=== PATIENT | female | born 1975 | race Caucasian/White ===

== ENCOUNTER 2022-11-02 06:00 | Outpatient (RCR) | payer OTHER, SELFPAY | END 2022-11-25 23:59 | disposition home or self-care (01) | LOC: WPT 06:00 | PROVIDERS: Visit Provider Physician Assistant Surgical | DX: M75.42 Impingement syndrome of left shoulder (principal) | CPT/HCPCS: 97110; 97112; 97140; 97161; 97530 ==

== ENCOUNTER → 2022-11-17 13:43 | Outpatient (BNVA) | payer OTHER, SELFPAY | PROVIDERS: PCP Nurse Practitioner Family; Referring Provider Nurse Practitioner Family; Visit Provider Internal Medicine | DX: E11.9 Type 2 diabetes mellitus without complications (principal); I25.119 Atherosclerotic heart disease of native coronary artery with unspecified angina pectoris; Z79.4 Long term (current) use of insulin; Z79.84 Long term (current) use of oral hypoglycemic drugs | CPT/HCPCS: 99204 ==

== ENCOUNTER → 2023-02-22 07:52 | Outpatient (BNVA) | payer OTHER, SELFPAY | PROVIDERS: PCP Nurse Practitioner Family; Visit Provider Internal Medicine | DX: E11.9 Type 2 diabetes mellitus without complications (principal); E78.00 Pure hypercholesterolemia, unspecified; K76.0 Fatty (change of) liver, not elsewhere classified; Z79.4 Long term (current) use of insulin; Z79.84 Long term (current) use of oral hypoglycemic drugs | CPT/HCPCS: 99214 ==

== ENCOUNTER 2023-04-04 10:54 | Outpatient (CLI) | payer OTHER, SELFPAY ==
--- NOTE | 2023-04-04 11:11 | MM_ITS ---
WS: [id number] BILATERAL 3D TOMOSYNTHESIS DIGITAL SCREENING MAMMOGRAPHY WITH CAD CLINICAL INFORMATION: SCREENING HISTORY: Screening mammogram. No current complaints. COMPARISON: 2020 TECHNIQUE: Bilateral CC and MLO views. FINDINGS: The breasts are composed of heterogeneous fibroglandular density tissue, which can limit the detectio n of small underlying mass lesions. No suspicious mass, asymmetry, calcifications, or architectural d istortion. No evidence of malignancy. A few incidental punctate calcifications. IMPRESSION: MM/[place] [id number] BI-RADS: 2-Benign FOLLOW UP: 1 Year Follow-up Recommend return to annual screening mammography.
== END 2023-04-04 10:55 | disposition home or self-care (01) ==
LOC: RAD 10:54
PROVIDERS: PCP Nurse Practitioner Family; Visit Provider Nurse Practitioner Family
DX: Z12.31 Encounter for screening mammogram for malignant neoplasm of breast (principal)
CPT/HCPCS: 77063; 77067

== ENCOUNTER → 2023-06-30 09:30 | Outpatient (BNVA) | payer OTHER, SELFPAY | PROVIDERS: PCP Nurse Practitioner Family; Visit Provider Internal Medicine | DX: E78.00 Pure hypercholesterolemia, unspecified (principal); E11.9 Type 2 diabetes mellitus without complications; Z79.84 Long term (current) use of oral hypoglycemic drugs; Z79.4 Long term (current) use of insulin | CPT/HCPCS: 99214 ==

== ENCOUNTER → 2023-10-24 09:42 | Outpatient (BNVA) | payer OTHER, SELFPAY | PROVIDERS: PCP Nurse Practitioner Family; Visit Provider Internal Medicine | DX: E78.00 Pure hypercholesterolemia, unspecified (principal); E11.9 Type 2 diabetes mellitus without complications; Z79.4 Long term (current) use of insulin; Z79.85 Long-term (current) use of injectable non-insulin antidiabetic drugs; Z79.84 Long term (current) use of oral hypoglycemic drugs | CPT/HCPCS: 99214 ==

== ENCOUNTER → 2023-11-29 10:41 | Outpatient (BNVA) | payer OTHER, SELFPAY | PROVIDERS: PCP Nurse Practitioner Family; Referring Provider Physician Assistant Surgical; Visit Provider Physician Assistant | DX: M79.641 Pain in right hand (principal); M65.312 Trigger thumb, left thumb | CPT/HCPCS: 73130; 99204 ==

== ENCOUNTER → 2024-01-24 10:39 | Outpatient (BNVA) | payer OTHER, SELFPAY | PROVIDERS: PCP Nurse Practitioner Family; Visit Provider Internal Medicine | DX: E11.9 Type 2 diabetes mellitus without complications (principal); E78.00 Pure hypercholesterolemia, unspecified; Z79.4 Long term (current) use of insulin; Z79.85 Long-term (current) use of injectable non-insulin antidiabetic drugs | CPT/HCPCS: 99214 ==

== ENCOUNTER 2024-02-05 21:39 | Emergency (ER) | payer OTHER, SELFPAY ==
[2024-02-05] VITALS (7 sets, daily range): BP systolic 98–135; BP diastolic 50–99; PULSE 80–92; RESP 12–18; TEMP 36.7; O2SAT 94–98; BMI 28.0
--- NOTE | 2024-02-05 21:39 | ECG_ITS ---
[facility] Test Date: 2024-02-05 Pat Name: Rosana Martinez Department: Room: Gender: Female Jig Borer: : 1975 Requested By: Laila Bush Order Number: [id number] Gonzalez MD: Mickey Burch M.D. Measurements Intervals [place] Rate: 89 P: 65 ND: 150 QRS: 91 QRSD: 125 T: 38 QT: 369 QTc: 451 Interpretive Statements SINUS RHYTHM RIGHT BUNDLE BRANCH BLOCK [120+ ms QRS DURATION, UPRIGHT V1, 40+ ms S IN I/aVL/V4/V5/V6] No previous ECG available for comparison Electronically Signed On 02-06-2024 7:48:32 CDT by Mickey Burch M.D. [id number]
--- NOTE | 2024-02-05 21:41 | XRR_ITS ---
PROCEDURE INFORMATION: Exam: XR Chest Exam date and time: 02/05/2024 9:58 PM Age: 48 years old Clinical indication: Pain; Chest pressure; Prior surgery; Surgery date: 6+ months; Surgery type: States she has a stent; Additional info: Chest pain TECHNIQUE: Imaging protocol: Radiologic exam of the chest. Views: 1 view. COMPARISON: No relevant prior studies available. FINDINGS: Lungs: Unremarkable. No consolidation. Pleural spaces: Unremarkable. No pleural effusion. No pneumothorax. Heart/Mediastinum: Unremarkable. No cardiomegaly. Bones/joints: Moderate degenerative disease of bilateral acromioclavicular joints. XR/XR chest 1V portable [id number] IMPRESSION: No acute cardiopulmonary process.
[2024-02-05 21:50] LABS: Basophils # 0.1 10^3/uL (0.0-0.1); Basophils % 0.5 %; Eosinophils # 0.9 10^3/uL (0.0-0.8); Eosinophils % 5.1 %; Hematocrit 42.2 % (36-47); Lymphocytes # 1.8 10^3/uL (0.8-4.8); Lymphocytes % 10.8 %; Mean Corpuscular HGB Conc 33.2 g/dL (30-55); Mean Corpuscular Hemoglobin 30.8 pg (27-33); Mean Corpuscular Volume 92.7 fl (85-98); Monocytes # 0.8 10^3/uL (0.2-0.9); Monocytes % 4.6 %; Neutrophils # 13.15 10^3/uL (1.8-7.7); Neutrophils % 78.7 %; Nucleated Red Blood Cells % 0 %; Platelet Count 159 10^3/cmm (157-399); Red Blood Count 4.55 10^6/uL (3.85-5.65); Red Cell Distribution Width 13.7 % (12.1-15.1); White Blood Count 16.72 10^3/uL (3.29-11.43)
--- NOTE | 2024-02-05 21:59 | ED_ITS ---
HPI - Chest Pain 2 General: Chief Complaint: Chest Pain Stated Complaint: Chest Pain Time Seen by Provider: 02/05/24 21:40 History of Present Illness: 48-year-old female with history of diabe surjit, tobacco dependence, hypertension, hyperlipidemia and coronary artery disease status post stent about 5 years ago who presents emergency room with chest pain that started yesterday. She said she is having a central chest pain that goes up into her neck and into her jaw on both sides. This is not the same as when she had a heart attack previously. She said she took a nitro last night when it started and that helped some. It was still there today. Has persisted all day and gotten worse as the days gone long. She took another nitro on the way here and that relieved the pain slightly. No cough. No shortness of breath. No altered mental status. No nausea or vomiting. No abdominal pain. No lower extremity swelling. Related Data Home Medications Medication Instructions Recorded Confirmed albuterol sulfate 90 mcg/actuation 2 inh inhalation QID 11/17/22 01/24/24 breath activated powder inhaler aspirin 81 mg tablet,delayed 81 mg PO DAILY 11/17/22 01/24/24 release (Adult Aspirin Regimen) blood sugar diagnostic (Accu-Chek 11/17/22 01/24/24 Guide test strips) buspirone 10 mg tablet 10 mg PO TID 11/17/22 01/24/24 losartan 25 mg tablet 25 mg PO DAILY 11/17/22 01/24/24 meclizine 25 mg chewable tablet 12.5 mg PO TID PRN 11/17/22 01/24/24 metoprolol succinate 25 mg 25 mg PO DAILY 11/17/22 01/24/24 tablet,extended release 24 hr rosuvastatin 40 mg tablet 40 mg PO DAILY 11/17/22 01/24/24 baclofen 20 mg tablet 20 mg PO TID 11/29/23 01/24/24 cholecalciferol (vitamin D3) 50 50 mcg PO DAILY 11/29/23 01/24/24 mcg (2,000 unit) capsule fexofenadine 180 mg tablet 180 mg PO DAILY 11/29/23 01/24/24 pregabalin 100 mg capsule 100 mg PO TID 11/29/23 01/24/24 venlafaxine 150 mg 150 mg PO DAILY 11/29/23 01/24/24 capsule,extended release 24 hr tramadol 100 mg tablet 100 mg PO TID PRN 01/24/24 01/24/24 Previous Rx's Medication Instructions Recorded blood-glucose meter,continuous #1 ea 06/30/23 (Dexcom G7 Journeyman Wireman) insulin aspart U-100 100 unit/mL 30 unit (0.3 mL) SUBCUT TID #15 mL 06/30/23 (3 mL) subcutaneous pen (Novolog FlexPen U-100 Insulin aspart) semaglutide 2 mg/dose (8 mg/3 mL) 2 mg (0.75 mL) SUBCUT Q7D #3 mL 10/24/23 subcutaneous pen injector (Ozempic) blood-glucose sensor (Dexcom G7 #9 ea 01/24/24 Sensor device) Allergies Allergy/AdvReac Type Severity Reaction Status Date / Time fluticasone Allergy Unknown Verified 02/05/24 21:57 ketorolac [From Toradol] Allergy Unknown Verified 02/05/24 21:57 latex Allergy Unknown Verified 02/05/24 21:57 prazosin Allergy Unknown Verified 02/05/24 21:57 salmeterol Allergy Unknown Verified 02/05/24 21:57 [From Wixela Inhub] saxagliptin Allergy Unknown Verified 02/05/24 21:57 Review of Systems 2 Narrative: Constitutional symptoms: Negative except as documented in HPI. Skin symptoms: Negative except as documented in HPI. Eye symptoms: Negative except as documented in HPI. ENMT symptoms: Negative except as documented in HPI. Respiratory symptoms: Negative except as documented in HPI. Cardiovascular symptoms: Negative except as documented in HPI. Gastrointestinal symptoms: Negative except as documented in HPI. Genitourinary symptoms: Negative except as documented in HPI. Musculoskeletal symptoms: Negative except as documented in HPI. Neurologic symptoms: Negative except as documented in HPI. Psychiatric symptoms: Negative except as documented in HPI. Endocrine symptoms: Negative except as documented in HPI. PFSH ED 2 PFSH: Medical History Type 2 diabetes mellitus Hypercholesteremia Social History Smoking and tobacco/nicotine status: current every day tobacco/nicotine user Physical Exam 2 Narrative: EXAM NARRATIVE: General: Alert, no acute distress. Skin: Warm, dry. Head: Normocephalic, atraumatic. Neck: Supple, trachea midline. Eye: Extraocular movements are intact. Ears, nose, mouth and throat: mucosa moist. Cardiovascular: Regular, Normal peripheral perfusion. Respiratory: Lungs are clear to auscultation, respirations are non-labored, breath sounds are equal, Symmetrical chest wall expansion. Gastrointestinal: Soft, Nontender, Non distended Musculoskeletal: Normal ROM, no deformity. Neurological: Alert and oriented, No focal neurological deficit observed. Psychiatric: Cooperative, appropriate mood & affect. Course 2 Vital Signs: Vital signs: Vital Signs Temperature 98.0 F 02/05/24 21:48 Pulse Rate 85 02/05/24 23:40 Respiratory Rate 16 02/05/24 23:40 Blood Pressure 105/64 02/05/24 23:40 Pulse Oximetry 94 02/05/24 23:40 Oxygen Delivery Me thod Room Air 02/05/24 23:40 MDM - Chest Pain Medical Decision Making Differential diagnosis for patient with chest pain includes but is not limited to and based on the above HPI, review of systems and physical exam: Pneumonia. unstable angina. angina. Acute coronary syndrome / [place]. Pulmonary embolism. Costochondritis / musculoskeletal. Pleurisy. Pericarditis. Esophageal spasm. Pancreatis. Cholecystitis. Orders placed to evaluate differential diagnosis based on the above differential, HPI and physical exam EKG: Time 2138. Rate 89. Normal sinus rhythm, No ST-T changes, no ectopy, right bundle branch block, This was reviewed and interpreted by myself the ER physician at 2142. Repeat EKG: Time 2323. Rate 81. Normal sinus rhythm, No ST-T changes, no ectopy, normal CT & QRS intervals, This was reviewed and interpreted by myself the ER physician at 2325 Chest x-ray: No acute process. No infiltrate. No pneumothorax. This was reviewed and interpreted by myself the ER physician. Lab Review: Laboratory results were reviewed and interpreted by myself the emergency room physician. Lab work is fairly unremarkable although she does have a white count of 16,000. No other signs of infection. Hemoglobin is 14. BUN/creatinine are 14 and 0.7. Sugar is a little bit elevated at 168. Serial troponins are negative. HEART Pathway for Early Discharge in Acute Chest Pain from [facility] on 02/05/2024 All calculations should be rechecked by clinician prior to use RESULT SUMMARY: 3 points HEART Pathway Score Low risk 0.9-1.7% 30-day MACE Repeat troponin at 3 hours and if negative, discharge home with outpatient follow-up. INPUTS: History ?> 0 = Slightly suspicious EKG ?> 0 = Normal Age ?> 1 = 45-64 Risk factors ?> 2 = >= risk factors or history of atherosclerotic disease Initial troponin ?> 0 = <=ormal limit I reviewed the patient's medical record. Reexamination: Patient remained stable. No increased work of breathing. No altered mental status. No focal motor deficits. Patient now says she has a headache and a scratchy throat and some congestion symptoms. We are going to send a COVID test and she will call back for the results of this. Assessment and plan: Noncardiac chest pain ?Morphine and Zofran in the emergency room. Nitro at home did not really have significant effect. - Discharged home - Discussed findings and plan with patient. Answered any questions. - All laboratory values were reviewed and interpreted personally by myself, the ER physician - All imaging was reviewed and interpreted personally by myself, the ER physician. - Evaluation and treatment of this problem were appropriate in the emergency setting Lab Data 02/05/24 21:46 02/05/24 21:46 Radiology Impressions Chest X-Ray 02/05/24 21:41 IMPRESSION: No acute cardiopulmonary process. Laboratory Results WBC 16.72 10^3/uL (3.29-11.43) H 02/05/24 21:46 RBC 4.55 10^6/uL (3.85-5.65) 02/05/24 21:46 Hgb 14.00 g/dL (11.27-16.99) 02/05/24 21:46 Hct 42.2 % (36-47) 02/05/24 21:46 MCV 92.7 fl (85-98) 02/05/24 21:46 MCH 30.8 pg (27-33) 02/05/24 21:46 MCHC 33.2 g/dL (30-55) 02/05/24 21:46 RDW 13.7 % (12.1-15.1) 02/05/24 21:46 Plt Count 159 10^3/cmm (157-399) 02/05/24 21:46 MPV 11.0 fL (7.4-10.4) H 02/05/24 21:46 Neut % (Auto) 78.7 % 02/05/24 21:46 Lymph % (Auto) 10.8 % 02/05/24 21:46 [place] % (Auto) 4.6 % 02/05/24 21:46 Eos % (Auto) 5.1 % 02/05/24 21:46 Baso % (Auto) 0.5 % 02/05/24 21:46 Neut # (Auto) 13.15 10^3/uL (1.8-7.7) H 02/05/24 21:46 Lymph # (Auto) 1.8 10^3/uL (0.8-4.8) 02/05/24 21:46 [place] # (Auto) 0.8 10^3/uL (0.2-0.9) 02/05/24 21:46 Eos # (Auto) 0.9 10^3/uL (0.0-0.8) H 02/05/24 21:46 Baso # (Auto) 0.1 10^3/uL (0.0-0.1) 02/05/24 21:46 Nucleated RBC % (auto) 0 % 02/05/24 21:46 Nucleated RBCs # 0.0 /100WBC 02/05/24 21:46 Sodium 136 mmol/L (136-145) 02/05/24 21:46 Potassium 4.0 mmol/L (3.5-5.1) 02/05/24 21:46 Chloride 100 mmol/L (98-107) 02/05/24 21:46 Carbon Dioxide 24 mmol/L (22-29) 02/05/24 21:46 Anion Gap 16.0 (5-19) 02/05/24 21:46 BUN 14 mg/dL (6-20) 02/05/24 21:46 Creatinine 0.7 mg/dL (0.5-0.9) 02/05/24 21:46 GFR Calculation 88.6 mL/min (90-130) L 02/05/24 21:46 Glucose 168 mg/dL (65-115) H 02/05/24 21:46 Calculated Osmolality 286 mOsm/kg (285-295) 02/05/24 21:46 Calcium 8.6 mg/dL (8.5-10.5) 02/05/24 21:46 Total Bilirubin 0.3 mg/dL (0.15-1.2) 02/05/24 21:46 AST 19 U/L (0-32) 02/05/24 21:46 ALT 13 U/L (0-33) 02/05/24 21:46 Alkaline Phosphatase 92 U/L (35-105) 02/05/24 21:46 Troponin T Baseline < 6 ng/L (0-10) 02/05/24 21:46 Troponin T 120 Minute 6.00 ng/L (0-10) 02/05/24 23:14 Delta Troponin T 0.62725 ABS# (0-10) 02/05/24 23:14 Total Protein 6.6 g/dL (6.6-8.7) 02/05/24 21:46 Albumin 4.2 g/dL (3.5-5.2) 02/05/24 21:46 Globulin 2.4 g/dL (1.3-4.6) 02/05/24 21:46 All radiology interpretation(s) finalized by discharge Discharge Plan Discharge Patient Disposition: Home Clinical Impression: Non-cardiac chest pain, Viral illness Condition: Stable Prescriptions: No Action Ozempic 2 mg/dose (8 mg/3 mL) pen injector 2 mg SUBCUT Q7D Qty: 3 1RF tramadol 100 mg tablet 100 mg PO TID PRN (DME) Dexcom G7 Sensor Device See Rx Instructions .ROUTE .MEDSUPPLY Qty: 9 2RF Rx Instructions: Change every 10days baclofen 20 mg tablet 20 mg PO TID venlafaxine 150 mg capsule,extended release 24hr 150 mg PO DAILY fexofenadine 180 mg tablet 180 mg PO DAILY cholecalciferol (vitamin D3) 50 mcg (2,000 unit) capsule 50 mcg PO DAILY pregabalin 100 mg capsule 100 mg PO TID (DME) Accu-Chek Guide test strips Strip See Rx Instructions .Route Rx Instructions: As directed albuterol sulfate 90 mcg/actuation aerosol powdr breath activated 2 inh inhalation QID aspirin [Adult Aspirin Regimen] 81 mg tablet,delayed release (DR/EC) 81 mg PO DAILY buspirone 10 mg tablet 10 mg PO TID losartan 25 mg tablet 25 mg PO DAILY meclizine 25 mg tablet,chewable 12.5 mg PO TID PRN metoprolol succinate 25 mg tablet extended release 24 hr 25 mg PO DAILY rosuvastatin 40 mg tablet 40 mg PO DAILY (DME) Dexcom G7 Journeyman Wireman Misc See Rx Instructions .Route Qty: 1 0RF Rx Instructions: As directed insulin aspart U-100 [Novolog FlexPen U-100 Insulin] 100 unit/mL (3 mL) insulin pen 30 unit SUBCUT TID Qty: 15 1RF Discharge Orders: Discharge ED (Routine); Ordered 02/05/24 Ordered By: Laila Lynn Referrals: Kemi Roberto MD [Primary Care Provider] - Discharge Diet: Usual diet Discharge Activity: Increase activity as tolerated Patient Instructions: Noncardiac Chest Pain (ED) Activity Restrictions/Additional Instructions: Please call back for your COVID and flu swab the results. Thank you for choosing [facility] for your healthcare needs today. Please realize this is an emergency room and that we are providing you with a medical screening exam and this may not be complete and all inclusive of all the testing and or work up that you may need to determine your ailment or severity of your illness. You have been screened and evaluated and felt safe for discharge. Health conditions do change or evolve sometimes and as such it is important that you follow up with your Primary Doctor to be re checked, 3-5 days is a general good time frame for follow up. You are always welcome to return to the ED for re assessment if your symptoms are worsening or you have new concerns Coding Level of Care Code ED Division Plant Engineer for Vickie Gonzalez
[2024-02-05 22:09] LABS: Troponin(5th) Baseline < 6 ng/L (0-10)
[2024-02-05 22:38] LABS: Alanine Aminotransferase 13 U/L (0-33); Albumin Level 4.2 g/dL (3.5-5.2); Alkaline Phosphatase 92 U/L (35-105); Aspartate Amino Transferase 19 U/L (0-32); Blood Urea Nitrogen 14 mg/dL (6-20); Calcium 8.6 mg/dL (8.5-10.5); Carbon Dioxide 24 mmol/L (22-29); Chloride 100 mmol/L (98-107); Creatinine Clr Calc Pharmacy 101.9241; Globulin 2.4 g/dL (1.3-4.6); Glomerular Filtration Rate 88.6 mL/min (90-130); Glucose 168 mg/dL (65-115); Osmolality Calculated 286 mOsm/kg (285-295); Sodium 136 mmol/L (136-145); Total Bilirubin 0.3 mg/dL (0.15-1.2); Total Protein 6.6 g/dL (6.6-8.7)
[2024-02-05] MEDS: ondansetron 2 mg/ML SDV 2 mL 4 MG IVP (22:46)
[2024-02-05] MEDS: morphine 4 mg/mL SDV 1 mL IVP (22:47)
--- NOTE | 2024-02-05 23:23 | ECG_ITS ---
[facility] Test Date: 2024-02-05 Pat Name: Rosana Martinez Department: Room: Gender: Female Relief Manager: : 1975 Requested By: Laila Bush Order Number: [id number] Carlos MD: Mickey Burch M.D. Measurements Intervals [place] Rate: 81 P: 73 MD: 160 QRS: 83 QRSD: 90 T: 67 QT: 379 QTc: 442 Interpretive Statements SINUS RHYTHM No previous ECG available for comparison Electronically Signed On 02-06-2024 7:49:45 CDT by Mickey Burch M.D. [id number]
[2024-02-05 23:34] LABS: Troponin 5 2HR Delta 0.00001 ABS# (0-10)
[2024-02-06 00:30] LABS: Covid PCR NEGATIVE (Negative); Influenza A NEGATIVE (Negative); Influenza B NEGATIVE (Negative); Respiratory Syncytial Virus Ce NEGATIVE (Negative)
== END 2024-02-05 23:55 | disposition home or self-care (01) ==
PROVIDERS: Emergency Provider Emergency Medicine; PCP Family Medicine
DX: R07.89 Other chest pain (principal); B34.9 Viral infection, unspecified; Z79.85 Long-term (current) use of injectable non-insulin antidiabetic drugs; Z79.82 Long term (current) use of aspirin; Z79.4 Long term (current) use of insulin; I45.10 Unspecified right bundle-branch block; E11.9 Type 2 diabetes mellitus without complications; Z72.0 Tobacco use
CPT/HCPCS: 0241U; 36415; 71045; 80053; 84484; 85025; 93005; 96374; 96375; 99285; J2270; J2405

== ENCOUNTER 2024-02-22 08:46 | Day surgery (SDC) | payer OTHER, SELFPAY ==
[2024-02-22] VITALS (10 sets, daily range): BP systolic 113–144; BP diastolic 70–84; PULSE 65–71; RESP 12–18; O2SAT 97–100; BMI 28.2
--- NOTE | 2024-02-22 09:48 | P.HP_ITS ---
Same Day Surgery H&P Indication for Procedure/HPI DATE OF PROCEDURE: February 22, 2024 CHIEF COMPLAINT/INDICATIONFOR SURGICAL PROCEDURE: Left thumb trigger PREOP DIAGNOSIS: Left thumb trigger PLANNED PROCEDURE: Operation Date: 02/22/24 11:00 Proposed Procedures p Trigger thumb Release(Left) - Romero Calvin DO Medications/Allergies* Home Medications Medication Instructions Recorded Confirmed Type albuterol sulfate 90 mcg/actuation 2 inh inhalation QID 11/17/22 02/21/24 Hi story breath activated powder inhaler aspirin 81 mg tablet,delayed 81 mg PO DAILY 11/17/22 02/21/24 History release (Adult Aspirin Regimen) blood sugar diagnostic (Accu-Chek 11/17/22 01/24/24 History Guide test strips) losartan 25 mg tablet 25 mg PO DAILY 11/17/22 02/21/24 History meclizine 25 mg chewable tablet 12.5 mg PO TID PRN Vertigo 11/17/22 02/21/24 History metoprolol succinate 25 mg 50 mg PO DAILY 11/17/22 02/21/24 History tablet,extended release 24 hr rosuvastatin 40 mg tablet 40 mg PO DAILY 11/17/22 02/21/24 History baclofen 20 mg tablet 20 mg PO TID 11/29/23 02/21/24 History cholecalciferol (vitamin D3) 50 100 mcg PO DAILY 11/29/23 02/21/24 History mcg (2,000 unit) capsule fexofenadine 180 mg tablet 180 mg PO DAILY 11/29/23 02/21/24 History pregabalin 100 mg capsule 100 mg PO TID 11/29/23 02/21/24 History venlafaxine 150 mg 150 mg PO DAILY 11/29/23 02/21/24 History capsule,extended release 24 hr buprenorphine 20 mcg/hour weekly 1 patch transdermal Q7D 02/21/24 02/21/24 History transdermal patch cetirizine 10 mg tablet 10 mg PO DAILY 02/21/24 02/21/24 History folic acid 1 mg tablet 1 mg PO DAILY 02/21/24 02/21/24 History insulin aspart U-100 100 unit/mL 10 unit SUBCUT TID 02/21/24 02/21/24 History (3 mL) subcutaneous pen (Novolog FlexPen U-100 Insulin aspart) insulin glargine U-300 conc 300 30 unit SUBCUT DAILY 02/21/24 02/21/24 History unit/mL (1.5 mL) subcutaneous pen (Toujeo SoloStar U-300 Insulin) magnesium 200 mg tablet 400 mg PO DAILY 02/21/24 02/21/24 History nitrofurantoin 100 mg PO BID 02/21/24 02/21/24 History monohydrate/macrocrystals 100 mg capsule (Macrobid) solifenacin 10 mg tablet 10 mg PO DAILY 02/21/24 02/21/24 History Allergies/Adverse Reactions Allergy/AdvReac Type Severity Reaction Status Date / Time Alpha-Gal Allergy Unknown Verified 02/21/24 15:22 (Tkdhyyyor-Ajyha-8,3-Gala fluticasone Allergy Unknown Verified 02/21/24 13:54 ketorolac [From Toradol] Allergy Unknown Verified 02/21/24 13:54 latex Allergy Unknown Verified 02/21/24 13:54 prazosin Allergy Unknown Verified 02/21/24 13:54 salmeterol Allergy Unknown Verified 02/21/24 13:54 [From Wixela Inhub] saxagliptin Allergy Unknown Verified 02/21/24 13:54 Pertinent History/Comorbid Conditions* Medical History (Updated 02/13/24 @ 00:01 by MERYL Vaughan) Type 2 diabetes mellitus Hypercholesteremia Social History Smoking and tobacco/nicotine status: current every day tobacco/nicotine user Pertinent Exam Findings alert, oriented x 3, operative site marked and procedure specific exam findings Today she does have A1 oleksandr tenderness to palpation with mechanical locking and catching Please refer to detailed orthopedic examination on 11/29/2023 listed below: Left hand?thumb?A1 oleksandr tenderness and mechanical locking and catching of finger. No other A1 oleksandr tenderness throughout hand. Full range of motion other fingers. Fingers are warm and well-perfused with normal cap refill under 2 seconds. Radial pulse 2+. Normal range of motion in wrist. Recommendations Surgery/Procedure today Other Plans: Plan proceed to the OR today for left trigger thumb release. Patient has had her Ozempic we talked about just doing no anesthesia and doing this under local which she understands and is agreeable would like to proceed with that this way. She understands the ins and outs of the procedure, the risk benefits complication alternatives surgery and through shared decision-making elects proceed with surgical intervention. All questions been answered at this time. Coding Level of Care Code Acute Code for Chg Fwd
[2024-02-22] MEDS: sodium chloride 0.9% 1,000 ML 30 ML IV (09:49)
[2024-02-22] MEDS: acetaminophen 1,000 MG/100 ML PIGGYBACK 400 MG IV (09:50)
[2024-02-22 09:55] LABS: Glucose Point of Care 116 mg/dL (70-110)
[2024-02-22] MEDS: ceFAZolin 2,000 MG in sodium chloride 0.9% (plus) 50 ML 100 MG IV (10:56)
[2024-02-22] MEDS: ROPivacaine 0.5% SDV 30 mL 25 MG INJECTION (11:22)
[2024-02-22] MEDS: lidocaine 1% 10 ML INJ XX (11:23)
--- NOTE | 2024-02-22 11:31 | P.BOP_ITS ---
Date of Procedure: 02/22/2024 Surgeon: Romero Calvin DO Residential Green Building Designer(s): None Procedure(s) performed: Left thumb trigger release Findings of the procedure(s): Left thumb trigger, patient underwent procedure as planned without issues or complication Estimated blood loss: 3 mL Specimen(s) removed: None Post-operative diagnosis: Left thumb trigger
--- NOTE | 2024-02-22 11:32 | P.OP_ITS ---
Operative Report Date of procedure: February 22, 2024 Surgeon: Romero Calvin DO Procedure: Preoperative diagnosis: Left thumb trigger Post-op diagnosis: Left?thumb?trigger Procedure done: Left?thumb?trigger release Surgeon: Romero Calvin DO Estimated blood loss: 3mL Tourniquet time: 5 minutes Anesthesia: General IV fluids: See anesthesia record Complications: None Findings: See operative report narrative Condition: stable Disposition: same day Brief History: Patient presents to the outpatient setting with findings consistent with a Left?thumb?trigger. Patient has been worked up in the outpatient setting and is failed conservative treatment approach.? Patient has a Left?thumb?trigger that she has tried treating conservatively with recurrence of her?triggering pain.? We talked about treatment options and ultimately patient would like to proceed with a Left?thumb?trigger release. At this point time I feel this is most appropriate as this is her next best step in treatment option.? We talked about the risk benefits complications and alternatives with surgical nonsurgical treatment options.? Understanding risk of surgery patient agrees to proceed with a Left?thumb?trigger release. All questions answered. Procedure: Patient was seen evaluated in the preoperative holding area.? Consent was reviewed and signed with patient.? Correct extremity was then marked.? Patient was then seen and evaluated by the anesthesia department once cleared for surgery patient was then taken back to the operative suite patient was placed in supine position and all bony prominences well-padded the patient was properly secured to the bed.? Armboard was applied to the Left upper extremity and the Left upper extremity was then placed with a nonsterile tourniquet to the Left upper arm.? This point time the Left upper extremity was then prepped and draped in standard orthopedic fashion.? A final timeout was performed.? Patient received appropriate preoperative antibiotics. Under sterile aseptic technique perform digital block. Esmarch tourniquet was used exsanguinate the Left upper extremity and tourniquet was insufflated to 250 mmHg.? I identified patient's MP flexion crease marked appropriate incision transversely across the flexion crease within Yang's lines sharp scalpel incision was made only through skin.? Once this was done I switched to Littler dissection scissors this I then subsequently spread longitudinally in the planes of the digital nerves.? Once these were identified these were protected by my family service assistant with Kasdan retractors.? Next I identified directly over the A1 oleksandr of the Left?thumb.? This was significantly thickened and identified to be the area of patient's?thumb?triggering.? I used sharp scalpel to incise the A1 oleksandr and then utilized my family service assistant to retract the ability and under loupe magnification released the entirety of the A1 oleksandr both proximally and distally up to the oblique oleksandr.? This point time the tendon was then inspected and found to be healthy there was some inflammation around the tendon itself but no evidence of tearing and no need for any debridement.? The Ragnell was used to pull the tendon out of the incision and there was no mechanical?triggering I then took the patient's?thumb?through range of motion no recurrent?triggering was noted.? ?I then let the tourniquet down identified and maintained exact hemostasis with bipolar electrocautery irrigated the wound bed and then closed the incision with interrupted nylon suture. Incision sites were then dressed with Xeroform 4 x 4's Kerlix Bari wrap and an Fred wrap.? Patient was then awakened from anesthesia and taken to PACU in stable condition. Disposition: Patient taken to PACU in stable condition recovering well.? Dressing on in place clean dry and intact.? Patient was receive appropriate discharge instruction as well as pain medication postoperatively.? Patient may be allowed weightbearing as tolerated to the Left hand and encourage range of motion once dressing come down after 72 hours.? Patient to follow-up with me in the office in 2 weeks.? Patient understands and agrees with current plan.? All questions answered.
== END 2024-02-22 11:52 | disposition home or self-care (01) ==
PROVIDERS: PCP Family Medicine; Visit Provider Student in an Organized Health Care Education/Training Program
PROC: (CPT 26055; principal; 2024-02-22 11:00)
DX: M65.312 Trigger thumb, left thumb (principal); Z79.82 Long term (current) use of aspirin; E11.9 Type 2 diabetes mellitus without complications; F17.200 Nicotine dependence, unspecified, uncomplicated; Z79.4 Long term (current) use of insulin
CPT/HCPCS: 26055; 36416; 82962; J0131; J0690; J2795; J7030

== ENCOUNTER → 2024-03-12 14:43 | Outpatient (BNVA) | payer OTHER, SELFPAY | PROVIDERS: PCP Family Medicine; Visit Provider Physician Assistant | DX: Z98.890 Other specified postprocedural states (principal) | CPT/HCPCS: 99024 ==

== ENCOUNTER → 2024-04-15 11:10 | Outpatient (BNVA) | payer OTHER, SELFPAY | PROVIDERS: PCP Family Medicine; Visit Provider Internal Medicine Cardiovascular Disease | DX: R07.9 Chest pain, unspecified (principal); I25.10 Atherosclerotic heart disease of native coronary artery without angina pectoris; E78.00 Pure hypercholesterolemia, unspecified; E11.9 Type 2 diabetes mellitus without complications; Z79.4 Long term (current) use of insulin; I10 Essential (primary) hypertension; R06.02 Shortness of breath; F17.200 Nicotine dependence, unspecified, uncomplicated | CPT/HCPCS: 93005; 99204 ==

== ENCOUNTER → 2024-06-24 12:00 | Outpatient (BNVA) | payer OTHER, SELFPAY | PROVIDERS: PCP Family Medicine; Visit Provider Internal Medicine | DX: E78.00 Pure hypercholesterolemia, unspecified (principal); E11.9 Type 2 diabetes mellitus without complications; Z79.4 Long term (current) use of insulin | CPT/HCPCS: 99214 ==

== ENCOUNTER 2024-07-03 11:27 | Outpatient (CLI) | payer OTHER, SELFPAY ==
--- NOTE | 2024-07-03 11:33 | USCV_ITS ---
Rosana Martinez Age: 48 Gender: F : 1975 Exam Date: 07/03/2024 11:47 Ordering Phys: Clarita Dorado MD ([email or web address]) Technologist: CT Exam Location: [facility] [place] Indication: mi BP: 95 / 66 HR: 88 Rhythm: Sinus Technical Quality: Adequate MEASUREMENTS (Male / Female) Normal Values 2D ECHO LVOT Diameter 2.0 cm LV Ejection Fraction MOD 4C 69.6 % LV Ejection Fraction MOD 2C 63.7 % LV Ejection Fraction 2C AL 64.0 % LA Diameter 2.9 cm RA Systolic Volume 4C AL 29.2 ml RA Systolic Volume 4C MOD 28.3 ml LA Sys Volume AL 26.5 cm cubed LA Sys Volume Index AL 13.6 cm cubed/m squared Aorta at Sinotubular Diameter 2.1 cm IVC Diameter 2.1 cm M-MODE LA Ao Ratio MM 1.3 AV Cusp Separation MM 1.4 cm DOPPLER AV Peak Velocity 138.0 cm/s LVOT Peak Velocity 96.0 cm/s AV Area Cont Eq vti 2.4 cm squared AV Area Cont Eq pk 2.2 cm squared MV Peak Velocity 66.0 cm/s MV Area PHT 3.2 cm squared Mitral E to A Ratio 1.0 TR Peak Velocity 148.0 cm/s TR Peak Gradient 8.8 mmHg TV Peak E Velocity 53.0 cm/s PV Peak Velocity 80.5 cm/s FINDINGS Left Ventricle Left ventricle is normal size. LV systolic function is normal with EF of 60-65%. No regional wall motion abnormalities are seen. Right Ventricle Normal in size and function Right Atrium Normal in size Left Atrium Normal in size Mitral Valve Structurally normal mitral valve. Mild mitral regurgitation. Aortic Valve Structurally normal aortic valve. No significant stenosis or regurgitation. Tricuspid Valve Insufficient TR jet to evaluate RVSP. Pulmonic Valve Not well visualized Pericardium Normal Aorta Normal in size IVC Appears to be normal CONCLUSIONS LV systolic function is normal with EF of 60 to 65%. Mild mitral regurgitation No comparison studies are available. Mickey Burch MD (Electronically Signed) Final Date: 03 July 2024 12:30 S
== END 2024-07-03 11:28 | disposition home or self-care (01) ==
PROVIDERS: PCP Family Medicine; Visit Provider Internal Medicine Cardiovascular Disease
DX: I21.9 Acute myocardial infarction, unspecified (principal); I34.0 Nonrheumatic mitral (valve) insufficiency
CPT/HCPCS: 93306

== ENCOUNTER 2024-07-25 08:10 | Outpatient (CLI) | payer OTHER, SELFPAY ==
--- NOTE | 2024-07-25 | ECG_ITS ---
[facility] Pat Name: Rosana Martinez Department: Room: Gender: Female Vp Genetic: : 1975 Requested By: Clarita Dorado Order Number: [id number] Carlos MD: Mickey Burch M.D. Interpretive Statements LEXISCAN SESTAMIBI STRESS TEST Procedure: At the baseline, the blood pressure was 122/81 mmHg with a heart rate of 73 bpm. The electrocardiogram showed normal sinus rhythm, normal axis with normal ST and T's. The Lexiscan was infused over a period of 20 seconds. A total of 0.4 mg of Lexiscan was infused. The stress phase was continued for a total of 5 minutes. Heart rate was at the end of stress phase was 82 bpm and a blood pressure of 134/83 mmHg. The EKG at the peak infusion revealed normal sinus rhythm with no significant ST-T wave changes. Sestamibi was injected 20 seconds after the Lexiscan infusion. Blood pressure at the end of recovery phase was 130/82 mmHg with a heart rate of 79 bpm. Conclusion: 1. Normal EKG response to Lexiscan infusion 2. No Lexiscan induced chest pain or cardiac arrhythmia. 3. Normal blood pressure and heart rate response. 4. Sestamibi/sestamibi perfusion scan pending; see separate report. Electronically Signed On 08-14-2024 11:41:55 CDT by Mickey Burch M.D. [email or web address]
--- NOTE | 2024-07-25 08:28 | NMCV_ITS ---
NM nallely perf SPECT r/s* [id number] Rosana Martinez Age: 48 Gender: F : 1975 Exam Date: 07/25/2024 09:12 Ordering Phys: Clarita Dorado MD ([email or web address]) Technologist: AMBER Duran Exam Location: [facility] Indications: cp STRESS TEST Please see separate stress test report in [facility] for full findings IMAGE PROTOCOL Rest/Stress 1 Lexiscan Day Radiopharmaceutical Dose (mCi) Administration Site Administered by Rest: Tc-99m 10.5 IV AMBER Duran Sestamibi Stress:Tc-99m 32.5 IV Kristy Leslie, SERVICE P[employer]TER Sestamibi Rest: 25-Jul-2024 60 Discovery 630 Stress: 25-Jul-2024 30 Discovery 630 0.4mg Lexiscan. Images obtained in supine and prone position. SPECT RESULTS Technical Quality: Good Raw Data Analysis: Normal Image Corrections: No attenuation or motion correction applied Summed Stress Score: 0 Summed Rest Score: 0 Summed Difference Score: 0 PERFUSION FINDINGS SPECT images demonstrate homogeneous tracer distribution throughout the myocardium. FUNCTIONAL RESULTS (calculated via Gated SPECT) Stress Image LV EF (%): 74 Stress EDV (mL):92 TID: 1.08 Stress ESV (mL):24 FUNCTIONAL FINDINGS: There is normal left ventricular systolic function. IMPRESSIONS 1. Normal myocardial perfusion imaging with no evidence of ischemia 2. LV systolic function is normal Mickey Burch MD (Electronically Signed) Final Date: 29 July 2024 21:50 S
--- NOTE | 2024-07-25 10:25 | PC.NURSE ---
Patient unable to reach target HR on treadmill due to leg fatigue. Dr. Burch notified and [facility]. This was explained to the patient and she wishes to continue with the franciscoan.
[2024-07-25] MEDS: regadenoson 0.4 Mg/5 ml Syringe IVP (10:34)
[2024-07-25 11:35] VITALS: BP 130/82; PULSE 81
== END 2024-07-25 08:11 | disposition home or self-care (01) ==
LOC: CDL 08:11
PROVIDERS: PCP Family Medicine; Visit Provider Internal Medicine Cardiovascular Disease
DX: R06.02 Shortness of breath (principal)
CPT/HCPCS: 36415; 78452; 93017; 95910; 96374; A9500; J2785

== ENCOUNTER → 2024-07-26 09:06 | Outpatient (BNVA) | payer OTHER, SELFPAY | PROVIDERS: PCP Family Medicine; Visit Provider Nurse Practitioner Family | DX: I25.10 Atherosclerotic heart disease of native coronary artery without angina pectoris (principal); I10 Essential (primary) hypertension; E78.5 Hyperlipidemia, unspecified; F17.200 Nicotine dependence, unspecified, uncomplicated; E11.9 Type 2 diabetes mellitus without complications; I34.0 Nonrheumatic mitral (valve) insufficiency; J44.9 Chronic obstructive pulmonary disease, unspecified; I25.2 Old myocardial infarction; Z79.4 Long term (current) use of insulin; Z79.85 Long-term (current) use of injectable non-insulin antidiabetic drugs | CPT/HCPCS: 99214 ==

== ENCOUNTER 2024-09-25 12:50 | Outpatient (RCR) | payer OTHER, SELFPAY | END 2024-09-25 23:59 | disposition home or self-care (01) | LOC: SOT 12:50 | PROVIDERS: Visit Provider Family Medicine | DX: G56.01 Carpal tunnel syndrome, right upper limb (principal) | CPT/HCPCS: 97110; 97165; 97530 ==

== ENCOUNTER → 2024-11-11 08:26 | Outpatient (BNVA) | payer OTHER, SELFPAY | PROVIDERS: Visit Provider Internal Medicine | DX: E11.9 Type 2 diabetes mellitus without complications (principal); Z79.4 Long term (current) use of insulin; E78.00 Pure hypercholesterolemia, unspecified | CPT/HCPCS: 99214 ==

== ENCOUNTER → 2025-02-12 15:27 | Outpatient (BNVA) | payer OTHER, SELFPAY | PROVIDERS: PCP Family Medicine; Visit Provider Internal Medicine Cardiovascular Disease | DX: I25.10 Atherosclerotic heart disease of native coronary artery without angina pectoris (principal); I10 Essential (primary) hypertension; E78.00 Pure hypercholesterolemia, unspecified; E11.9 Type 2 diabetes mellitus without complications; Z79.85 Long-term (current) use of injectable non-insulin antidiabetic drugs; Z72.0 Tobacco use; Z98.61 Coronary angioplasty status; I25.2 Old myocardial infarction | CPT/HCPCS: 99214 ==

== ENCOUNTER 2025-04-08 14:08 | Outpatient (CLI) | payer OTHER, SELFPAY | END 2025-04-08 14:09 | disposition home or self-care (01) | LOC: SPT 14:08 | PROVIDERS: PCP Family Medicine; Visit Provider Student in an Organized Health Care Education/Training Program | DX: Z46.89 Encounter for fitting and adjustment of other specified devices (principal); G56.01 Carpal tunnel syndrome, right upper limb; M65.4 Radial styloid tenosynovitis [de Quervain]; M65.311 Trigger thumb, right thumb | CPT/HCPCS: L3809 ==